=== PATIENT | female | born 1950 | race Caucasian/White ===

== ENCOUNTER 2023-01-20 12:04 | Emergency (ER) | payer MEDICARE ==
[~2023-01-20] VITALS: Ht 165.1 cm; Wt 62.6 kg
[2023-01-20 12:38] VITALS: TEMP 98.4
[2023-01-20] MEDS ORDERED: TDAP [DIPH/PERTUSSIS/TET] 0.5 ML VIAL IM ONE ×2 (13:48→14:00)
[2023-01-20] MEDS ORDERED: BACI/NEOM/POLY B OINT PKT 1 UDPKT PACKET ONE (14:54)
[2023-01-20] MEDS ORDERED: BACITRACIN ZINC OINT PACKET 1 EA PACKET TP ONE (15:00)
[2023-01-20 15:03] VITALS: BP 142/89; O2SAT 100
== END 2023-01-20 15:03 | disposition home or self-care (01) ==
LOC: ER 12:06
DX: S01.112A Laceration without foreign body of left eyelid and periocular area, initial encounter (principal); W01.0XXA Fall on same level from slipping, tripping and stumbling without subsequent striking against object, initial encounter; Y93.89 Activity, other specified; Y92.89 Other specified places as the place of occurrence of the external cause; Y99.8 Other external cause status
CPT/HCPCS: 12011; 70450; 70486; 72125; 90471; 90715; 99285; A6403